=== PATIENT | male | born 1955 | race Caucasian/White ===

== ENCOUNTER 2018-05-02 07:45 | Day surgery (SDC) | payer BC ==
[2018-05-02] MEDS ORDERED: ceFAZolin 2 GM/DEXTROSE 100 ML IV ONE (08:03)
[2018-05-02] MEDS ORDERED: LR 1,000 ML IV ONE (08:04)
[2018-05-02] MEDS ORDERED: BUPIVACAINE 0.5% 30 ML SDV ONE (08:32)
--- NOTE | 2018-05-02 09:45 | PDHPUP ---
History & Physical Update H&P update statement: This history and physical update is based on an assessment of the patient which was completed after admission or registration (within 24 hours), but prior to the surgery/procedure. H&P update: H&P reviewed & patient examined, no change in patient's condition since H&P completed
[2018-05-02] MEDS ORDERED: MIDAZOLAM 2 MG/2 ML VIAL IVP ONE (09:54)
--- NOTE | 2018-05-02 09:54 | PDANEPAE ---
ANE History of Present Illness 62 YO FOR JOSEPH REYNAGA ANE Past Medical History - Cardiovascular History Hx Hypertension: No Hx Arrhythmias: No Hx Chest Pain: No Hx Coronary Artery / Peripheral Vascular Disease: No Hx CHF / Valvular Disease: No Hx Palpitations: No - Pulmonary History Hx COPD: No Hx Asthma/Reactive Airway Disease: No Hx Recent Upper Respiratory Infection: No Hx Oxygen in Use at Home: No Hx Sleep Apnea: No Sleep Apnea Screening Result - Last Documented: Negative - Neurologic History Hx Cerebrovascular Accident: No Hx Seizures: No Hx Dementia: No - Endocrine History Hx Diabetes: No - Renal History Hx Renal Disorders: No - Liver History Hx Hepatic Disorders: No - Neurological & Psychiatric Hx Hx Neurological and Psychiatric Disorders: No - Cancer History Hx Cancer: No - Congenital Disorder History Hx Congenital Disorders: No - GI History Hx Gastrointestinal Disorders: Yes Gastrointestinal History Comment: acid reflux/gerd - Other Health History Other Health History: none - Chronic Pain History Chronic Pain: No - Surgical History Prior Surgeries: ankle surgery. hip resurfacing left ANE Review of Systems Review of Systems: - Exercise capacity METS (RN): 4 METS ANE Patient History - Allergies Allergies/Adverse Reactions: No Known Allergies Allergy (Verified 05/01/18 14:45) - Home Medications Home Medications: Ascorbic Acid [Vitamin C 500 mg (*)] 11/28/13 [Last Taken 05/01/18] Aspirin [Aspirin 81mg (*)] 11/28/13 [Last Taken 05/01/18] Dexlansoprazole [DEXILANT] 11/28/13 [Last Taken 11/28/13] Multivitamins [Tab-A-Kyrstal] 11/28/13 [Last Taken 05/01/18] [place]-3 Fatty Acids [Fish Oil 1000 mg (OTC)] 11/28/13 [Last Taken 05/01/18] Ranitidine HCl 11/28/13 [Last Taken 05/01/18] Atorvastatin Calcium 05/02/18 [Last Taken 05/01/18] Lansoprazole 05/02/18 [Last Taken 05/02/18 06:30] - NPO status NPO Since - Liquids (Date): 05/02/18 NPO Since - Liquids (Time): 21:30 NPO Since - Solids (Date): 05/01/18 NPO Since - Solids (Time): 21:30 - Anes Hx Anes Hx: no prior problems - Smoking Hx Smoking Status: Former smoker - Family Anes Hx Family Hx Anesthesia Complications: unknown ANE Labs/Vital Signs - Vital Signs Blood Pressure: 117/71 Heart Rate: 59 Respiratory Rate: 18 O2 Sat (%): 96 Height: 5 ft 11 in Weight: 88.451 kg ANE Physical Exam - Airway Neck exam: FROM Mallampati Score: Class 2 Mouth exam: normal dental/mouth exam - Pulmonary Pulmonary: no respiratory distress - Cardiovascular Cardiovascular: regular rate and rhythym - ASA Status ASA Status: II ANE Anesthesia Plan Anesthesia Plan: general endotracheal anesthesia
[2018-05-02] MEDS ORDERED: PROPOFOL/EMULSION 500 MG/50 ML BOTTLE IV ONE (10:05)
[2018-05-02] MEDS ORDERED: fentaNYL 100 MCG/2 ML INJ ONE ×2 (10:05)
[2018-05-02] MEDS ORDERED: DEXAMETHASONE 4 MG/ML VIAL ONE (10:10)
[2018-05-02] MEDS ORDERED: ONDANSETRON 4 MG/2 ML VIAL ONE (10:10)
[2018-05-02] MEDS ORDERED: NALOXONE HCL 0.4 MG/ML INJ IVP PRN (10:56)
[2018-05-02] MEDS ORDERED: ONDANSETRON 4 MG/2 ML VIAL IVP PRN (10:56)
[2018-05-02] MEDS ORDERED: oxyCODONE IR 5 MG TAB PO PRN (10:56)
[2018-05-02] MEDS ORDERED: fentaNYL 100 MCG/2 ML INJ IVP PRN (10:56)
[2018-05-02] MEDS ORDERED: HYDROmorphONE/DILAUDID 2 MG/ML INJ IVP PRN (10:56)
[2018-05-02] MEDS ORDERED: SUGAMMADEX SODIUM 200 MG/2 ML VIAL IVP ONE (11:06)
--- NOTE | 2018-05-02 11:24 | POSTOPPROG ---
Post Op Note Date of Operation: 05/02/18 Surgeon: Tushar Mcgill Child Custody Evaluator: Laz Anesthesiologist: Florecita Anesthesia: GET(General Endotracheal) Pre-op Diagnosis: BIH Post-op Diagnosis: same Indication: same Procedure: Lap BIH repairs with mesh Findings: Bilateral indirect inguinal hernias Inf/Abcess present in the surg proc area at time of surgery?: No Depth: Deep Incisional (Fascial) EBL: Minimal
[2018-05-02] MEDS ORDERED: oxyCODONE IR 5 MG TAB ONE (11:42)
--- NOTE | 2018-05-02 12:17 | POSTANESTH ---
Post Anesthetic Evaluation Cardiovascular Status: Normal, Stable Respiratory Status: Normal, Stable Level of Consciousness/Mental Status: Can Participate in Eval Pain Control: Adequate, Prn Tx Ordered Nausea/Vomiting Control: Adequate, Prn Tx Ordered Complications Possibly Related to Anesthesia: None Noted
[2018-05-02 14:01] VITALS: BP 114/71
--- NOTE | 2018-05-09 09:25 | GOP ---
[f rep st] OPERATIVE REPORT DATE OF OPERATION: 05/02/2018 SURGEON: Tushar Mcgill MD ETIQUETTE COACH: Carolyn Nesbitt, nurse practitioner ANESTHESIOLOGIST: Dr. Alfonzo Bernabe PREOPERATIVE DIAGNOSIS: Bilateral inguinal hernias. POSTOPERATIVE DIAGNOSIS: Bilateral inguinal hernias. PROCEDURE PERFORMED: Laparoscopic bilateral hernia repairs with mesh. FINDINGS: The patient was found with bilateral indirect inguinal hernias, left greater than right. DESCRIPTION OF PROCEDURE: The patient was taken the operating room where he received a satisfactory general endotracheal anesthesia by Dr. Bernabe. He was placed in supine position, prepped and drape d in usual sterile fashion. Infraumbilical incision was made. Dissection was carried down the rectus sheath, which was incised. A subfascial tunnel was developed in the preperitoneal space that was dissected free with a balloon dissector, which was replaced with a CO2 insufflation trocar. Two other trocars were placed in midli ne under direct vision. Low ligament was exposed bilaterally. The cords were mobilized bilateral ly. Peritoneum was dissected off the cord structures. Both sides showed indirect sacs, which were d issected free and reduced. Bilateral Covidien polyester mesh patches were inserted. Split patches w ere used to pass the limb around the cord structures. They were anchored in place in a similar gloria r, securing them to Low ligament, to the lacunar ligament, anterior abdominal wall, and the latera l abdominal wall outside the internal ring. This was done with an AbsorbaTack. Hemostasis was assur ed. Pneumopreperitoneum was released and trocars removed under direct vision. Trocar sites were closed with 0 Vicryl for the fascia, 4-0 Monocryl subcuticular stitch for the skin. All layers were infiltrated with 0.5% Marcaine. He tolerated the procedure well, taken to the [facility] very room in good condition. No complications. Copy requested to: Alberto /[id number]/OCTAVIAL
== END 2018-05-02 13:40 | disposition home or self-care (01) ==
LOC: FSGY 07:45
PROVIDERS: ATTEND Surgery
PROC: 0YQA4ZZ Repair Bilateral Inguinal Region, Percutaneous Endoscopic Approach (ICD-10-PCS; principal; 2018-05-02 09:30)
DX: K40.20 Bilateral inguinal hernia, without obstruction or gangrene, not specified as recurrent (principal)
CPT/HCPCS: C1727; C1781; J0690; J1100; J2250; J2405; J2704; J3010